=== PATIENT | male | born 1970 | race Caucasian/White ===

== ENCOUNTER 2018-01-17 18:55 | Inpatient (IN) | payer BC, OTHER ==
[~2018-01-17] VITALS: Ht 180.3 cm; Wt 81.6 kg
--- NOTE | 2018-01-17 22:00 | NUR ---
Intake Assessment - Patient Education Regarding Conduction of Body Search Pt presented in intake office. Pt noted to be alert and oriented x4, guarded, flushed face and irritable. Pt reported he was not "okay to squat and cough for anyone". Pt refused to do the body search and be admitted to [facility]. PT educated regarding policies and procedures of the unit by dress shoe inspector. However, pt continued to refuse. Admin notified. Due to non compliance of body search, pt is placed on a 1:1 for entire stay at [facility], as instructed by administration. Skin assessment for wounds conducted.
[2018-01-17 22:30] VITALS: BP 115/86
--- NOTE | 2018-01-17 22:30 | NUR ---
Intake Assessment Assessment done at intake office. Speech is clear and audible. He had a flushed face, flat and guarded affect. He is very anxious and irritable. He responds to questions with aggression and gets more agitated when more quiestions is asked. He presented with anxiety, agitation, restlessness, elevated heart rate, generalized body aches & flushed face. No N/V/D noted. He complains of generalized pain. Vitals taken immediately B/P 115/86, CO 112, RR 18, Temp 97.1 O2Sat 98%. Explained to pt unit protocols such as Q4H Vitals signs check & regarding destruction of any controlled substances brought to facility and handling of all medications. Will continue admission process when pt arrives in the unit.
[2018-01-17] MEDS ORDERED: MAG HYDROX/AL HYDROX/SIMETH 30 ML LIQUID UDC PO PRN (23:00)
[2018-01-17] MEDS ORDERED: MIRALAX 17 GM POWD.PACK PO PRN (23:00)
[2018-01-17] MEDS ORDERED: BUPRENORPHINE HCL 2 MG TAB.SUBL SL PRN (23:00)
[2018-01-17] MEDS ORDERED: diphenhydrAMINE 50 MG CAPSULE PO PRN (23:00)
[2018-01-17] MEDS ORDERED: SRC BENZO WITHDRAWAL ADMITTING PROTOCOL XX PRN (23:00)
[2018-01-17] MEDS ORDERED: ACETAMINOPHEN 325 MG TABLET PO PRN (23:00)
[2018-01-17] MEDS ORDERED: MAGNESIUM HYDROXIDE 30 ML LIQUID UDC PO PRN (23:00)
[2018-01-17] MEDS ORDERED: ONDANSETRON 4 MG/2 ML VIAL IM PRN (23:00)
[2018-01-17] MEDS ORDERED: LORAZEPAM 2 MG/1 ML VIAL IM PRN (23:00)
[2018-01-17] MEDS ORDERED: ONDANSETRON ODT 4 MG TAB.RAPDIS SL PRN (23:00)
[2018-01-17] MEDS ORDERED: LORAZEPAM 1 MG TABLET PO PRN (23:00)
[2018-01-17] MEDS ORDERED: SRC OPIOID WITHDRAWAL ADMITTING PROTOCOL XX PRN (23:00)
[2018-01-17] MEDS ORDERED: LOPERAMIDE HCL 2 MG CAPSULE PO PRN ×2 (23:00)
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
[2018-01-17] MEDS ORDERED: LORAZEPAM 1 MG TABLET PO ONE (23:45)
[2018-01-17] MEDS ORDERED: KETOROLAC TROMETHAMINE 30 MG INJ IM ONE (23:45)
--- NOTE | 2018-01-17 23:45 | NUR ---
Pt c/o of 09/28 generalized pain. Offered Toradol IM but pt refused. Pt stated " Not right now, I will wait". Pt stable at this time. Will continue to monitor patient.
[2018-01-18 00:08] LABS: ETHANOL 69 MG/DL (0-0)
[2018-01-18] MEDS ORDERED: LEVE500T20 PO (00:14)
[2018-01-18] MEDS ORDERED: LEVO200T9 PO (00:14)
[2018-01-18] MEDS ORDERED: TAMS0.4C34 PO (00:14)
[2018-01-18] MEDS ORDERED: DOCU-286 PO (00:14)
[2018-01-18] MEDS ORDERED: VENL150C58 PO (00:14)
[2018-01-18] MEDS ORDERED: fixodent (00:17)
[2018-01-18 01:26] LABS: BASOPHILS % (AUTO) 0.2 % (0.0-2.0); EOSINOPHILS % (AUTO) 0.1 % (0.0-7.0); HEMATOCRIT 44.4 % (36.7-47.1); LYMPHOCYTES # (AUTO) 2.2 K/uL (20.0-40.0); MEAN CORPUSCULAR HEMOGLOBIN 29.5 uug (23.8-33.4); MEAN CORPUSCULAR HGB CONC 34 g/dL (32.5-36.3); MEAN CORPUSCULAR VOLUME 87.1 fL (73.0-96.2); MONOCYTES # (AUTO) 0.6 K/uL (2.0-10.0); MONOCYTES % (AUTO) 8.6 % (0.0-11.0); NEUTROPHILS # (AUTO) 4.3 K/uL (1.8-8.9); NEUTROPHILS % (AUTO) 60.1 % (38.5-71.5); PLATELET COUNT (AUTO) 180 K/uL (152-348); RED BLOOD CELL COUNT(AUTO) 5.09 MIL/uL (4.06-5.63); WHITE BLOOD COUNT (AUTO) 7.1 K/uL (3.6-10.2)
[2018-01-18 01:40] LABS: *AMPHETAMINE, URINE NEGATIVE (NEGATIVE); *BARBITURATE, URINE NEGATIVE (NEGATIVE); *CANNABINOID, URINE NEGATIVE (NEGATIVE); *COCCAINE, URINE NEGATIVE (NEGATIVE); *OPIATE, URINE POSITIVE (NEGATIVE); *PHENCYCLIDINE SCREEN,URINE NEGATIVE (NEGATIVE)
[2018-01-18 01:51] LABS: THYROID STIMULATING HORMONE < 0.007 mIU/mL (0.358-3.740)
[2018-01-18 02:01] LABS: ALANINE AMINOTRANSFERASE 36 U/L (16-63); ALKALINE PHOSPHATASE 107 U/L (50-136); ASPARTATE AMINOTRANSFERASE 24 U/L (15-37); BILIRUBIN,TOTAL 0.2 mg/dL (0.2-1.0); CARBON DIOXIDE 25 mmol/L (21-32); CHLORIDE 107 mmol/L (98-107); GLUCOSE 109 mg/dL (74-106); MAGNESIUM 1.8 mg/dL (1.8-2.4); POTASSIUM 4.2 mmol/L (3.5-5.1); UREA NITROGEN, BLOOD 7 mg/dL (7-18)
[2018-01-18] MEDS: METHOCARBAMOL 750 MG TABLET PO PRN ×3 (03:48→19:59)
[2018-01-18] MEDS: LORAZEPAM 1 MG TABLET PO PRN ×3 (03:48→19:59)
[2018-01-18] MEDS: IBUPROFEN 600 MG TABLET PO PRN ×2 (03:51→08:31)
--- NOTE | 2018-01-18 03:51 | NUR ---
Pt presented with anxiety, agitation, chills, muscle cramping, myalgia, 8/10 headache, & restlessness. COWS 10 CIWA 16. PRN Ativan 2mg, Motrin & robaxin administered as ordered. Will continue to monitor patient.
[2018-01-18 04:00] VITALS: BP 147/85
--- NOTE | 2018-01-18 04:51 | NUR ---
Pt noted with decreased in anxiety and agitation, relief from muscle cramping and decreased in headache form 8/10 to 4/10 after 1 hour of medication administration. COWS 9 CIWA 12 noted at this time. Safety measures in place, Will continue to monitor patient.
--- NOTE | 2018-01-18 07:24 | NUR ---
End of Shift Note: Pt is a 47 y.o male admitted last night for Opiate and Benzo withdrawal. Pt came in mildly intoxicated and noted with increasing anxiety & agitation. Pt was refusing to do body search and was placed on 1:1 observation per administration orders. Pt received PRN Ativan 2mg, Robaxin & Motrin with relief. Pt presented with anxiety, agitation, restlessness, elevated heart rate, generalized body aches, muscle cramps, fine tremors & flushed face. Last COWS 9 CIWA 12. Vitals remains stable. Pt had trouble sleeping last night. Vitals remain stable. Fluid intake is 500ml, voided 3x with no BM noted. Encourage to increase fluid intake. Safety measures in place. Will endorse pt to day shift nurse.
[2018-01-18 08:00] VITALS: BP 145/84
--- NOTE | 2018-01-18 08:00 | NUR ---
START OF SHIFT COWS CIWA ASSESSMENT Pt 47 y/o male admitted for opiate and benzo withdrawal. Pt received in room on bed awake watching television. Pt alert and oriented to name, place, and time. Perrla. Skin warm and moist to touch. Respirations even and unlabored. Sitter 1:1 for safety. cows=12 ciwa=13 @0800. Anxious and restless. Pressured speech. Irritable and agitated. Bilateral hand tremors. Body aches and generalized discomfort. Not able to lay still. It was reported that pt did sleep last night. Bed on lowest position with side rails x 2 up for safety. Call light within reach.
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
--- NOTE | 2018-01-18 08:31 | NUR ---
PRN ATIVAN SUBUTEX ciwa=12 ciwa=13. Anxious and restless and anxious. Bilateral hand tremors noted. Fidgety. Irritable and agitated. pressured speech. Body aches and pain. Generalized discomfort. Ativan 2mg po prn per MD order given. Subutex sl prn per MD order given. Addendum: 01/18/18 at 1108 by EZRA PHILIPPE RN correction ciwa=16
[2018-01-18] MEDS ORDERED: TUBERCULIN,PURIF.PROT.DERIV. 5 TU/0.1 ML TEST ID ONE (09:00)
[2018-01-18] MEDS: MULTIVITAMINS,THERAPEUTIC TABLET PO SCH (09:00)
--- NOTE | 2018-01-18 09:31 | NUR ---
PRBuddy ATIVAN SUBUTEX cows=8 ciwa=10. anxious. Complaints of generalized discomfort. Pt states body aches 04/28. Intermittent perspiration. Addendum: 01/18/18 at 1653 by EZRA PHILIPPE RN correct title PRN ATIVAN SUBUTEX EDILMA
[2018-01-18] MEDS: CLONIDINE HCL 0.1 MG TABLET PO PRN ×2 (11:57→22:22)
[2018-01-18] MEDS: HYDROXYZINE PAMOATE 25 MG CAPSULE PO PRN ×2 (11:57→22:22)
--- NOTE | 2018-01-18 11:58 | NUR ---
PRN CATAPRES ROBAXIN VISTARIL Pt states BLE aches 08/28.Robaxin po prn per MD order given. Anxious and restless. Irritable and agitated. Fidgety. Catapres po prn per MD order given. Vistaril po prn per MD order given.
[2018-01-18 12:00] VITALS: BP 135/83
--- NOTE | 2018-01-18 12:00 | NUR ---
COWS CIWA ASSESSMENT cows=16 ciwa=13. Bilateral hand tremors noted. Anxious and restless. Pressured speech. Irritable and agitated. Intermittent perspiration. Complaints of body aches and generalized discomfort.
[2018-01-18] MEDS ORDERED: 5 DAY TAPER VALIUM-SERENITY PROTOCOL PO PRN (12:45)
[2018-01-18] MEDS ORDERED: 5 DAY TAPER BUPRENORPHINE -SERENITY PROTOCOL SL PRN (12:45)
--- NOTE | 2018-01-18 12:58 | NUR ---
PRN CATAPRES ROBAXIN VISTARIL EVAL Pt states medications effective for anxiety. Body aches of BLE 4/10.
[2018-01-18] MEDS ORDERED: LEVETIRACETAM 250 MG TABLET PO SCH (13:00)
[2018-01-18] MEDS ORDERED: LEVETIRACETAM 500 MG TABLET PO SCH (13:00)
[2018-01-18] MEDS: BUPRENORPHINE HCL 2 MG TAB.SUBL SL SCH ×3 (13:31→21:11)
[2018-01-18] MEDS: DIAZEPAM 10 MG TABLET PO SCH ×2 (13:31→21:10)
[2018-01-18] MEDS: VENLAFAXINE XR 150 MG CAP.SR.24H PO SCH (15:21)
[2018-01-18 16:00] VITALS: BP 126/76
--- NOTE | 2018-01-18 16:00 | NUR ---
COWS CIWA ASSESSMENT cows=13 ciwa=13. Anxious and restless. Pressured speech. Fidgety. Pacing. Irritable. Bilateral hand tremors noted. Complaints of body aches and generalized discomfort.
[2018-01-18] MEDS ORDERED: VENLAFAXINE XR 150 MG CAP.SR.24H PO SCH ×2 (17:00→21:00)
[2018-01-18] MEDS: LEVETIRACETAM 750MG PO SCH ×2 (17:44→21:09)
--- NOTE | 2018-01-18 19:01 | NUR ---
END OF SHIFT Pt 47 y/o admitted for opiate and benzo withdrawal. Pt alert and oriented to name, place, and time. Perrla. Skin warm and moist to touch. Respirations even and unlabored. Appears disheveled. Empty drink bottles scattered throughout the room. Encouraged to maintain hygiene. Anxious and restless. Pressured speech. Bilateral hand tremors noted. Intermittent perspiration. Agitated and irritable. Chronic aches of BLE. Complaints of generalized discomfort. PT with 1:1 sitter to monitor for safety. Pt did not attend group activity today. Pt is on a 5 day valium taper and is on day 1. Pt also on a 5 day subutex taper and is on day 1. Last cows=13 ciwa=13 @1600. Bed on lowest position with side rails x 2 up for safety. Call light within reach.
--- NOTE | 2018-01-18 19:41 | NUR ---
START OF SHIFT NOTE Rcvd report from outgoing nurse. Pt is a 47 y/o male A/O to person, place, time, and purpose. Pt was admitted for medically supervised withdrawal from Benzodiazepines and Opiates. Pt is on day 1 of a 5 day Subutex and Valium taper. Pt has been presenting w/ anxiety, agitation, irritability, emotional volatility, flat affect, flushing, sweats, body aches, and chills. Pt rcvd PRN Ativan, Subutex, Motrin, Robaxin, Clonidine, and Vistaril and were noted effective by outgoing nurse. Last CIWA 13 and COWS 13 @ 1600. Call light is within reach. Pt will continue to be monitored and needs met.
--- NOTE | 2018-01-18 19:59 | NUR ---
PRN ATIVAN AND ROBAXIN ADMINISTRATION Ativan 2mg for CIWA 18 and Robaxin 750mg for body aches/pain. Pt c/o 08/28 pain. Will reassess pt in 1 hr.
[2018-01-18 20:00] VITALS: BP 127/73
--- NOTE | 2018-01-18 20:00 | NUR ---
CIWA AND COWS ASSESSMENT CIWA 18 and COWS 16. Pt has been presenting w/ anxiety, agitation, irritability, emotional volatility, flat affect, flushing, sweats, body aches, and chills. V/S: T:98.3, P:94, RR:12, SPO2:96, BP:127/73.
--- NOTE | 2018-01-18 20:59 | NUR ---
PRN ATIVAN AND ROBAXIN REASSESSMENT Pt is in bed and states relief of withdrawal symptoms and pain is now 3/10 and tolerable. Will continue to monitor pt.
[2018-01-18] MEDS: TAMSULOSIN HCL 0.4 MG CAP.SR.24H PO SCH (21:09)
[2018-01-18] MEDS: LEVOTHYROXINE SODIUM 200 MCG TABLET PO SCH (21:09)
--- NOTE | 2018-01-18 22:21 | NUR ---
PRN BENADRTYL, CLONIDINE, AND VISTARIL ADMINISTRATION Benadryl 50mg for sleep, and Clonidine 0.1mg and Vistaril 50mg for anxiety, sweats, and agitation were given. Will reassess pt in 1hr.
--- NOTE | 2018-01-18 23:21 | NUR ---
PRN BENADRTYL, CLONIDINE, AND VISTARIL REASSESSMENT Pt is in bed. Pt states he feels "more mayra and relaxed". Pt has the TV off and an eye mask on. Pt states he is trying to fall asleep. Will continue to monitor.
--- NOTE | 2018-01-19 00:06 | NUR ---
CIWA AND COWS DEFERRED Pt is in bed w/ his eyes closed. Pt's respirations are unlabored and even.
--- NOTE | 2018-01-19 02:30 | NUR ---
CIWA AND COWS ASSESSMENT CIWA 19 and COWS 18. Pt has been presenting w/ anxiety, agitation, irritability, emotional volatility, flat affect, flushing, sweats, body aches, chills, and insomnia. V/S refused. .
[2018-01-19] MEDS: IBUPROFEN 600 MG TABLET PO PRN ×2 (02:40→12:01)
--- NOTE | 2018-01-19 02:40 | NUR ---
PRN ATIVAN AND MOTRIN Ativan 2mg for CIWA of 19 and Motrin for bilateral leg pain. Will reassess pt in 1hr.
[2018-01-19] MEDS ORDERED: LORAZEPAM 1 MG TABLET PO ONE (02:45)
--- NOTE | 2018-01-19 03:40 | NUR ---
PRN ATIVAN AND MOTRIN REASSESSMENT Pt is in bed w/ his eyes clsoed. Pt's respirations are unlabroed and even.
--- NOTE | 2018-01-19 04:05 | NUR ---
CIWA AND COWS DEFERRED Pt si in bed w/ his eyes closed. Pt's respirations are unlabored and even.
--- NOTE | 2018-01-19 07:12 | NUR ---
END OF SHIFT NOTE Endorsed pt to oncoming nurse. Pt is a 47 y/o male A/O to person, place, time, and purpose. Pt was admitted for medically supervised withdrawal from Benzodiazepines and Opiates. Pt completed day 1 of a 5 day Subutex and Valium taper. Pt continued presenting w/ anxiety, agitation, irritability, emotional volatility, flat affect, flushing, sweats, body aches, insomnia, and chills. Pt denies any S/I Or H/I. PRN Ativan x2, Benadryl, Motrin, Robaxin, Clonidine, and Vistaril and were noted effective by outgoing nurse. Pts fluid intake was 1000ml and he slept for 5hrs. Last CIWA 19 and COWS 18 @ 0230. Call light is within reach.
[2018-01-19 08:00] VITALS: BP 118/77
--- NOTE | 2018-01-19 08:00 | NUR ---
START OF SHIFT AND COWS CIWA ASSESSMENT Pt 47 y/o male admitted for opiate and benzo withdrawal. Pt received in room on bed awake. Pt alert and oriented to name, place, and time. Perrla. Skin warm and moist to touch. Respirations even and unlabored. Sitter 1:1 to monitor for safety. Appears disheveled. Clothes and empty drink bottles scattered throughout the room. Encouraged to maintain hygiene. Cows=17 ciwa=15 @0800. Anxious and restless. Pressured speech. Irritable and agitated. Bilateral hand tremors. Complaints of body aches and generalized discomfort. It was reported that pt slept for 3 hours intermittently last night. Pt is on a 5 day valium taper and is on day 2. Pt also on a 5 day subutex and is on day 2. Bed on lowest position with side rails x 2 up for safety. Call light within reach.
[2018-01-19 08:06] LABS: HEPATITIS B SURFACE AG Negative (Negative)
[2018-01-19] MEDS: VENLAFAXINE XR 150 MG CAP.SR.24H PO SCH (08:38)
[2018-01-19] MEDS: MULTIVITAMINS,THERAPEUTIC TABLET PO SCH (08:38)
[2018-01-19] MEDS: DIAZEPAM 5 MG TABLET PO SCH ×4 (08:38→20:16)
[2018-01-19] MEDS: BUPRENORPHINE HCL 2 MG TAB.SUBL SL SCH ×3 (08:39→20:17)
[2018-01-19] MEDS: LEVETIRACETAM 750MG PO SCH ×4 (08:39→20:17)
--- NOTE | 2018-01-19 09:21 | NUR ---
Therapist prompted client to attend group therapy.
[2018-01-19 12:00] VITALS: BP 130/76
--- NOTE | 2018-01-19 12:00 | NUR ---
COWS CIWA ASSESSMENT cows=13 ciwa=12. Bilateral hand tremors noted. Anxious and restless. Hyperverbal. intermittent perspiration and chills. Complaints of body aches and generalized discomfort.
[2018-01-19] MEDS: METHOCARBAMOL 750 MG TABLET PO PRN ×2 (12:01→20:16)
--- NOTE | 2018-01-19 12:06 | NUR ---
PRN MOTRIN ROBAXIN Pt with complaints of body aches /. Robaxin po prn per MD order given. Pt states has body pains /. Motrin po prn per MD order given.
--- NOTE | 2018-01-19 13:06 | NUR ---
PRN MOTRIN SKYLAR EVAL Pt states medications effective.
[2018-01-19 16:00] VITALS: BP 121/80
--- NOTE | 2018-01-19 16:00 | NUR ---
COWS CIWA ASSESSMENT cows=13 ciwa=12. Anxious and restless. Pressured speech. Irritable. Complaints of generalized discomfort. Bilateral hand tremors noted. Intermittent perspiration.
--- NOTE | 2018-01-19 19:04 | NUR ---
END OF SHIFT Pt 47 y/o male admitted for opiate and benzo withdrawal. Pt alert and oriented to name, place, and time. Perrla. Skin warm and moist to touch. Respirations even and unlabored. Sitter 1:1 to monitor for safety. Appears disheveled. Food wrappings, empty drink bottles, and clothes scattered throughout the room. Encouraged to maintain hygiene. Cows=13 ciwa=12 @1600. Anxious and restless. Pressured speech. Irritable. Bilateral hand tremors. Complaints of body aches. Complaints of generalized discomfort. Pt did not attend group activity today. Pt is on a 5 day valium taper and is on day 2. Pt is on a 5 day subutex and is on day 2. Bed on lowest position with side rails x 2 up for safety. Call light within reach.
--- NOTE | 2018-01-19 19:33 | NUR ---
START OF SHIFT NOTE Rcvd report from outgoing nurse. Pt is a 47 y/o male A/O to person, place, time, and purpose. Pt was admitted for medically supervised withdrawal from Benzodiazepines and Opiates. Pt is day 2 of a 5 day Subutex and Valium taper. Pt has been presenting w/ anxiety, restlessness, irritability, emotional volatility, emotional labiality, sweats, flushing, restless legs, depressed and withdrawn mood, and a flat affect. Pt rcvd PRN Motrin and Robaxin and were noted effective by outgoing nurse. Last CIWA 12 and COWS 13 @ 1600. Call light is within reach. Pt will continue to be monitored and needs met.
[2018-01-19 20:05] VITALS: BP 132/78
--- NOTE | 2018-01-19 20:05 | NUR ---
CIWA AND COWS ASSESSMENT CIWA 13 and COWS 16. Pt has been presenting w/ anxiety, restlessness, irritability, emotional volatility, emotional labiality, sweats, flushing, restless legs, depressed and withdrawn mood, and a flat affect. V/S: T:98.2, P:81, RR:16, SPO2:96, BP:132/78.
--- NOTE | 2018-01-19 20:16 | NUR ---
PRN ROBAXIN ADMINISTRATION Robaxin 750mg given for leg pain 08/28. Will reassess pt in 1 hr.
[2018-01-19] MEDS: LEVOTHYROXINE SODIUM 200 MCG TABLET PO SCH (20:17)
[2018-01-19] MEDS: TAMSULOSIN HCL 0.4 MG CAP.SR.24H PO SCH (20:17)
--- NOTE | 2018-01-19 21:16 | NUR ---
ZEINAB CHENG REASSESSMENT Pt states relief from leg pain. Will continue to monitor pt.
[2018-01-19] MEDS: HYDROXYZINE PAMOATE 25 MG CAPSULE PO PRN (22:22)
[2018-01-19] MEDS: TRAZODONE 50 MG TABLET PO PRN (22:22)
[2018-01-19] MEDS: CLONIDINE HCL 0.1 MG TABLET PO PRN (22:22)
[2018-01-19] MEDS: GABAPENTIN 300 MG CAPSULE PO SCH (22:22)
--- NOTE | 2018-01-19 22:22 | NUR ---
PRN CLONIDINE, TRAZODONE, AND VISTARIL ADMINISTRATION Clonidine 0.1mg and Vistaril 50mg for anxiety and agitation, and Trazodone 50mg for sleep were given. Will reassess pt in 1hr.
--- NOTE | 2018-01-19 23:22 | NUR ---
PRN CLONIDINE, TRAZODONE, AND VISTARIL REASSESSMENT Pt is in bed w/ his eyes closed. Pt's respirations are unlabored and even.
--- NOTE | 2018-01-20 00:07 | NUR ---
CIWA AND COWS DEFERRED Pt is in bed w/ his eyes closed. Pt' respirations are unlabored and even.
--- NOTE | 2018-01-20 00:09 | NUR ---
CIWA AND COWS DEFERRED Pt is in bed w/ her eyes closed. Pt's respirations are unlabored and even. Addendum: 01/20/18 at 0026 by MARGARITA REAL RN Wrong pt.
--- NOTE | 2018-01-20 04:06 | NUR ---
CIWA AND COWS DEFERRED Pt is in bed w/ his eyes closed. Pt's respirations are unlabored and even.
--- NOTE | 2018-01-20 06:55 | NUR ---
END OF SHIFT NOTE Endorsed pt to oncoming nurse. Pt is a 47 y/o male A/O to person, place, time, and purpose. Pt was admitted for medically supervised withdrawal from Benzodiazepines and Opiates. Pt completed day 2 of a 5 day Subutex and Valium taper. Pt continued presenting w/ anxiety, restlessness, irritability, emotional volatility, emotional labiality, sweats, flushing, restless legs, depressed and withdrawn mood, and a flat affect. Pt denies any S/I or H/I. PRN Clonidine, Trazodone, Vistaril, and Robaxin were given and noted effective. Pts fluid intake was 2000ml and he slept for 7hrs. Last CIWA 13 and COWS 16 @ 1999. Call light is within reach.
--- NOTE | 2018-01-20 07:30 | NUR ---
Start of shift note; Received report from night nurse. Patient is a 47 year old male admitted on 01/17/18 for Opiate and benzodiazepine withdrawal. Patient was placed on a 5 day Subutex and 5 day Valium taper.Patient is AOX4, presented with anxiety, agitation , complaining of restless legs, muscle aches, stomach cramps, intermittent sweats and tremors. All safety measures secured. Will continue to monitor patient.
[2018-01-20 08:00] VITALS: BP 118/72
--- NOTE | 2018-01-20 08:00 | NUR ---
COWS / CIWA Assessment; Patient is AOX4, presented with anxiety, agitation , complaining of restless legs, muscle aches, stomach cramps, intermittent sweats and tremors. Patient's current COWS score is 12 and CIWA of 12. Will continue to monitor patient.
[2018-01-20] MEDS: DIAZEPAM 5 MG TABLET PO SCH ×3 (08:26→21:06)
[2018-01-20] MEDS: VENLAFAXINE XR 150 MG CAP.SR.24H PO SCH (08:26)
[2018-01-20] MEDS: MULTIVITAMINS,THERAPEUTIC TABLET PO SCH (08:26)
[2018-01-20] MEDS: GABAPENTIN 300 MG CAPSULE PO SCH ×3 (08:26→16:38)
[2018-01-20] MEDS: LEVETIRACETAM 750MG PO SCH ×4 (08:27→21:04)
[2018-01-20] MEDS ORDERED: BUPRENORPHINE HCL 2 MG TAB.SUBL SL SCH (09:00)
[2018-01-20 12:00] VITALS: BP 112/70
--- NOTE | 2018-01-20 12:00 | NUR ---
COWS / CIWA Assessment; Patient is AOX4, presented with anxiety, agitation , complaining of restless legs, muscle aches, stomach cramps, intermittent sweats and tremors. Patient's COWS score continue to be 12 and CIWA of 12. Will continue to monitor patient.
[2018-01-20] MEDS: ropiniROLE 1 MG TABLET PO SCH ×2 (12:57→16:38)
[2018-01-20] MEDS: HYDROXYZINE PAMOATE 25 MG CAPSULE PO PRN ×2 (13:00→21:06)
--- NOTE | 2018-01-20 13:00 | NUR ---
PRN medication; Patient appears anxious and agitated, PRN Vistaril 50 mg PO given for anxiety. Will continue to monitor patient for effectiveness of medication.
--- NOTE | 2018-01-20 14:00 | NUR ---
Re-assessment; Patient appears calm and comfortable at this time. PRN medication noted to be effective.
[2018-01-20] MEDS: BUPRENORPHINE HCL 2 MG TAB.SUBL SL SCH ×2 (14:11→21:07)
[2018-01-20 16:00] VITALS: BP 124/79
--- NOTE | 2018-01-20 18:22 | NUR ---
End of shift note; Patient is AOX4, presented with anxiety, agitation , complaining of restless legs, muscle aches, stomach cramps, intermittent sweats and tremors. Patient's last COWS score is 11 and CIWA of 10 at 1600. Patient remained compliant with treatment plan and medication regime. Medications were effective in reducing withdrawal symptoms. Encouraged patient to maintain adequate fluid and nutritional intake, patient verbalized understanding. All safety measures secured. Met all needs
--- NOTE | 2018-01-20 19:20 | NUR ---
Start of Shift Received 47 year old male patient admitted 01/17/18 to [facility] for medically supervised withdrawal from Benzodiazepines and Opiates. Pt currently on day 3 of a 5 day Valium and 5 day Subutex taper, which he is tolerating well. Pt received PRN Vistaril on day shift. Last CIWA 10 and COWS 11 @1600. Pt is in dark room in bed. Pt is anxious, agitated, worried and fearful. He is hyper focused on pain management and treatment for his right leg. Redirected to relaxation, repositioning, and plan of treatment. Bed is low, side rails up x 2, and call griffin in reach. Will continue to monitor.
[2018-01-20 20:00] VITALS: BP 114/72
--- NOTE | 2018-01-20 20:00 | NUR ---
CIWA 10/COWS 10 Pt is anxious, agitated, worried and fearful. He is hyper focused on pain management and treatment for his right leg.
[2018-01-20] MEDS: TRAZODONE 50 MG TABLET PO PRN (21:04)
[2018-01-20] MEDS: METHOCARBAMOL 750 MG TABLET PO PRN (21:04)
--- NOTE | 2018-01-20 21:04 | NUR ---
PRN Robaxin/Vistaril/Trazodone Pt anxious,agitated, irritable, c/o pain 08/28, and requested something to sleep. Medications given per order. Will monitor effect.
[2018-01-20] MEDS: LEVOTHYROXINE SODIUM 200 MCG TABLET PO SCH (21:06)
[2018-01-20] MEDS: TAMSULOSIN HCL 0.4 MG CAP.SR.24H PO SCH (21:06)
--- NOTE | 2018-01-20 22:04 | NUR ---
Reassess PRN Vistaril/Robaxin/Trazodone Medication effective. Pt resting with eyes closed. Respirations even and unlabored. Continue to monitor.
--- NOTE | 2018-01-21 | NUR ---
CIWA/COWS deferred and Vitals refused Pt resting with eyes closed. Respirations even and unlabored. CIWA/COWS deferred and pt refused vitals. Continue to monitor.
--- NOTE | 2018-01-21 04:00 | NUR ---
CIWA/COWS deferred and Vitals refused Pt resting with eyes closed. Respirations even and unlabored. CIWA/COWS deferred and pt refused vitals. Continue to monitor.
--- NOTE | 2018-01-21 06:53 | NUR ---
End of Shift Endorsing 47 year old male patient admitted 01/17/18 to [facility] for medically supervised withdrawal from Benzodiazepines and Opiates. Pt currently on day 4 of a 5 day Valium and 5 day Subutex taper, which he is tolerating well. Pt received PRN Vistaril, Robaxin, and Trazodone on overnight houseperson. Last CIWA 10 and COWS 10 @1999. Pt in bed resting with eyes closed. Respirations are even and unlabored. Bed is low, side rails up x 2, and call griffin in reach. PO intake 2000 ml, voided x 3, BM x 1, and slept 9 hours.
[2018-01-21 08:00] VITALS: BP 110/61
--- NOTE | 2018-01-21 08:00 | NUR ---
START OF SHIFT Pt is a 47 yr old male, AA&Ox4. Pt was admitted on 01/17/18 for Opiate/Benzo Withdrawal and is on 5 day Subutex and 5 day Valium taper as ordered. Received report from reptile keeper nurse. Pt received Robaxin PRN, Vistaril PRN and Trazodone PRN. Pt slept for 9 hrs. Last COWS score was 10 and CIWA score was 14. Pt is currently c/o increase pain on right leg, anxiety and is observed agitated. Pt is c/o that he is being tapered off Subutex to quickly and is stating of leaving AMA. Pt was redirected. Will continue to f/u with charge nurse and case management.
--- NOTE | 2018-01-21 08:20 | NUR ---
COWS SCORE AND CIWA SCORE Pt is c/o increase anxiety, agitation, headache, right leg pain, stomach cramping and sweats and chills. Pt is observed with fine tremors on BUE. COWS score was 10 and CIWA score was 14. Pt was encouraged increase fluid intake for hydration. Will continue to monitor.
[2018-01-21] MEDS: VENLAFAXINE XR 150 MG CAP.SR.24H PO SCH (08:27)
[2018-01-21] MEDS: ropiniROLE 1 MG TABLET PO SCH ×2 (08:28→13:00)
[2018-01-21] MEDS: MULTIVITAMINS,THERAPEUTIC TABLET PO SCH (08:28)
[2018-01-21] MEDS: GABAPENTIN 300 MG CAPSULE PO SCH ×2 (08:29→13:00)
[2018-01-21] MEDS: LEVETIRACETAM 750MG PO SCH ×2 (08:29→13:00)
[2018-01-21] MEDS ORDERED: BUPRENORPHINE HCL 2 MG TAB.SUBL SL SCH (09:00)
[2018-01-21] MEDS ORDERED: DIAZEPAM 5 MG TABLET PO SCH (09:00)
[2018-01-21 12:00] VITALS: BP 125/71
--- NOTE | 2018-01-21 13:37 | NUR ---
AMA NOTE Pt was verbalizing that he wanted to leave AMA. Pt states that he wanted to make a phone call to his mother without being on speaker. Pt was explained the rules and regulations on phone calls by administration. Pt became aggravated with nursing staff and administration and was stating, "I am leaving right now, I can't even call my own mother without being on speaker". Pt was spoken by Dr. Bradford in the risk and benefits on continuing with treatment, but pt was passive and continued to state he is going to leave AMA. Pt refused to speak with the therapist. Pt was also refusing to sign AMA paper work and tore the AMA form and community resources when it was handed to him. After being spoken to by staff and charge nurse, Pt then agreed to sign AMA form. Pt left the unit at [id number] in stable condition with all belongings, valuables and home medications.
[2018-01-22] MEDS ORDERED: DIAZEPAM 5 MG TABLET PO SCH (09:00)
[2018-01-22] MEDS ORDERED: BUPRENORPHINE HCL 2 MG TAB.SUBL SL SCH (09:00)
== END 2018-01-21 13:37 | disposition left against medical advice (07) | DRG 894 ==
LOC: SRC 21:49
PROVIDERS: ADMIT Family Medicine Addiction Medicine; ATTEND Family Medicine Addiction Medicine
PROC: HZ2ZZZZ Detoxification Services for Substance Abuse Treatment (ICD-10-PCS; principal; 2018-01-17)
PROC: HZ31ZZZ Individual Counseling for Substance Abuse Treatment, Behavioral (ICD-10-PCS; 2018-01-19)
DX: F11.23 Opioid dependence with withdrawal (principal); F33.1 Major depressive disorder, recurrent, moderate; F13.230 Sedative, hypnotic or anxiolytic dependence with withdrawal, uncomplicated; E03.9 Hypothyroidism, unspecified; F41.1 Generalized anxiety disorder; G47.00 Insomnia, unspecified
CPT/HCPCS: 36415; 80307; 80346; 80361; 83735; 84443; 85025; 86580; 86592; 86705; 86803; 87340; 87806; G0480; J1885; Q0163